=== PATIENT | male | born 1955 | race Caucasian/White ===

== ENCOUNTER 2019-03-29 23:07 | Emergency (ER) | payer OTHER ==
[~2019-03-29] VITALS: Ht 172.7 cm; Wt 74.1 kg
[2019-03-29] MEDS ORDERED: morphine 4 MG/ML inj SYRINge IV ONE (23:45)
[2019-03-29] MEDS ORDERED: ketorolac trometh. 30mg/ml inj. IV ONE (23:45)
[2019-03-29] MEDS ORDERED: cyclobenzaprine 10mg tablet PO ONE (23:45)
[2019-03-30] MEDS ORDERED: HYDR-4383 PO (04:39)
[2019-03-30] MEDS ORDERED: DICL25TA10 PO (04:39)
[2019-03-30] MEDS ORDERED: ondansetron/PF 4mg/2ml inj IV ONE (09:35)
[2019-03-30] MEDS ORDERED: morphine 4 MG/ML inj SYRINge IV ONE (09:35)
--- NOTE | 2019-03-30 09:40 | NUR ---
Pt transported to MRI with RN and Tech.
[2019-03-30] MEDS ORDERED: CYCL10TA10 PO (12:00)
[2019-03-30] MEDS ORDERED: CHL4T (12:00)
[2019-03-30] MEDS ORDERED: METH500T6 PO (12:00)
[2019-03-30 12:17] VITALS: BP 107/55
[2019-03-30] MEDS ORDERED: ONDA4TAB6 PO (12:18)
[2019-03-30] MEDS ORDERED: HYDR-3965 PO (12:18)
--- NOTE | 2019-03-30 12:38 | NUR ---
This pt. has been seen for his chroich back pain. After doing gait testing the MD (trent) felt that he wouldn't be able provide homecare for himself. The pt. insisted that he has been in this state chroinically for decades and that he has cared for himself like this for a long time. States as long as he got the perscriptions he would be okay to take care of himself. Pt. is now waiting on transportation.
== END 2019-03-30 15:51 | disposition home or self-care (01) ==
LOC: ER 23:08
DX: M54.5 Low back pain (principal); G89.29 Other chronic pain; F12.20 Cannabis dependence, uncomplicated; Z60.2 Problems related to living alone; Z88.8 Allergy status to other drugs, medicaments and biological substances; Z79.899 Other long term (current) drug therapy
CPT/HCPCS: 72100; 72146; 72148; 72170; 96374; 96375; 96376; 99284; J1885; J2270; J2405